=== PATIENT | female | born 1965 | race African-American/Black ===

== ENCOUNTER 2019-02-11 21:31 | Inpatient (IN) | payer OTHER ==
[~2019-02-11] VITALS: Ht 160 cm; Wt 81.6 kg
--- NOTE | 2019-02-11 21:45 | NUR ---
Respiratory note: PT ARRIVED VIA EMS FOR SOB. ABG OBTAINED. DR. CADE AT BEDSIDE. PT PRESENTING RESPIRATORY DISTRESS, PT TO BE INTUBATED BY DR. CADE.
[2019-02-11] MEDS ORDERED: SUCCINYLCHOLINE CHLORIDE 20 MG/ML 10ML VIAL IV ONE ×4 (21:52→22:45)
[2019-02-11] MEDS ORDERED: ETOMIDATE (2MG/ML) 20ML VIAL IV ONE ×3 (21:52→22:45)
[2019-02-11] MEDS: MIDAZOLAM DRIP 50 mg/50mL 50 ML IV SCH (21:59)
[2019-02-11] MEDS ORDERED: MIDAZOLAM DRIP 50 mg/50mL 50 ML IV ONE (21:59)
[2019-02-11 22:20] VITALS: BP 112/81
[2019-02-11] MEDS ORDERED: VANCOMYCIN 1GM/250ML 250 ML IV ONE (22:30)
[2019-02-11] MEDS ORDERED: SODIUM CHLORIDE 0.9% 3,250 ML IV ONE (22:30)
[2019-02-11] MEDS ORDERED: methylPREDNISolone SOD SUCC 125 MG/2 ML VL IV ONE (22:30)
[2019-02-11] MEDS ORDERED: PIPERACILLIN-TAZOB 3.375GM 100 ML IV ONE (22:30)
[2019-02-11] MEDS ORDERED: ACETAMINOPHEN 650 MG RECT SUPP PR ONE ×2 (22:30)
[2019-02-11] MEDS ORDERED: SODIUM CHLORIDE 0.9% 500 ML IV ONE (22:32)
[2019-02-11] MEDS ORDERED: SODIUM CHLORIDE 0.9% 500 ML IV STA (22:32)
[2019-02-11 22:53] VITALS: BP 112/81
--- NOTE | 2019-02-11 23:32 | NUR ---
Respiratory note: POST ABG RESULTS WERE REPORTED TO DR. CADE, INCREASED RR TO 16BPM. ABG TO FOLLOW.
[2019-02-11 23:42] LABS: Basophils # (auto) 0 uL; Basophils % (auto) 0.1 % (0.0-2.0); Eosinophils # (auto) 0 uL; Eosinophils % (auto) 0.1 % (0.0-7.0); Hematocrit 53.9 % (36.0-46.0); Hemoglobin 16.9 g/dL (12.2-16.2); Lymphocytes # (auto) 0.4 uL; Lymphocytes % (auto) 4.1 % (10.0-50.0); Mean Corpuscular Hemoglobin 29.6 pg (28.0-32.0); Mean Corpuscular Hgb Conc. 31.3 g/dL (32.0-36.0); Mean Corpuscular Volume 94.5 fL (80.0-100.0); Monocytes # (auto) 0.7 uL; Monocytes % (auto) 6.8 % (0.0-12.0); Neutrophils # (auto) 9.2 uL; Neutrophils % (auto) 88.9 % (37.0-80.0); Nucleated Red Blood Cells % 0.1 %; Platelet Count (auto) 131 10^3/uL (140-450); Red Blood Cells 5.71 10^6/uL (4.0-5.20); Red Cell Distribution Width 15.1 % (11.8-14.3); White Blood Cell 10.4 10^3/uL (4.4-10.8)
[2019-02-11 23:49] LABS: Urine Bacteria FEW /hpf (None Seen); Urine Blood Negative /uL (Negative); Urine Hyaline Cast MANY /lpf (0 - 2); Urine Mucus FEW (None Seen); Urine Specific Gravity 1.021 (1.001-1.035); Urine WBC 3 /hpf (0 - 5)
[2019-02-11 23:56] VITALS: BP 97/66
[2019-02-12] VITALS (72 sets, daily range): BP systolic 95–143; BP diastolic 60–96
[2019-02-12 00:03] LABS: Alanine Aminotransferase 319 U/L (13-56); Albumin 2.7 g/dL (3.4-5.0); Anion Gap 19 (5-15); Aspartate Aminotransferase 95 U/L (15-37); BUN/Creatinine Ratio 26.2; Blood Urea Nitrogen 75 mg/dL (7-18); Calcium 9.5 mg/dL (8.5-10.1); Carbon Dioxide 18 mmol/L (21-32); Chloride 121 mmol/L (98-107); GFR African American 22 mL/min; GFR Non-African American 18 mL/min; Potassium 4.7 mmol/L (3.5-5.1); Sodium 158 mmol/L (136-145)
[2019-02-12 00:06] LABS: Alkaline Phosphatase 269 U/L (45-117); Bilirubin, Total 1.1 mg/dL (0.2-1.0); Total Protein 6.1 g/dL (6.4-8.2)
[2019-02-12 00:22] LABS: Glucose 797 mg/dL (74-106)
[2019-02-12] MEDS ORDERED: ALBUMIN 5% 250 ML IV ONE (00:30)
[2019-02-12] MEDS ORDERED: fentaNYL Drip 2500mCg/250mlNS 250 ML IV ONE (00:40)
[2019-02-12] MEDS ORDERED: InsuLIN REG 1unit/0.01ml Soln (100units/ml) IV ONE ×2 (01:00→04:00)
[2019-02-12] MEDS ORDERED: fentaNYL Drip 2500mCg/250mlNS 250 ML IV SCH (01:00)
[2019-02-12] MEDS: NOREPINEPHRINE 8 MG/250ML KIT 250 ML IV SCH (01:00)
--- NOTE | 2019-02-12 01:25 | NUR ---
Respiratory note: PT TRANSPORTED TO CT VIA AMBU BAG, PEEP VALVE, AND O2 TANK. UNEVENTFUL. PT PLACED BACK ON VENT WITH PRVIOUS SETTINGS. WILL CONTINUE TO MONITOR.
[2019-02-12 02:17] LABS: Lactic Acid w/Reflex 3.9 mmol/L (0.4-2.0)
--- NOTE | 2019-02-12 03:27 | NUR ---
Respiratory note: ABG RESULTS REPORTED TO DR. CADE, TITRATED FIO2 TO 60%, RN AWARE. WILL CONTINUE TO MONITOR.
[2019-02-12] MEDS ORDERED: ACETAMINOPHEN 500 MG TAB PO PRN (05:45)
[2019-02-12] MEDS ORDERED: VANCOMYCIN PER PHARMACY 0 MG IV SCH ×2 (05:45→16:00)
[2019-02-12] MEDS ORDERED: SODIUM CHLORIDE 0.9% 1,000 ML IV ONE ×2 (05:45→12:00)
[2019-02-12] MEDS ORDERED: ONDANSETRON HCL 4 MG/2 ML VIAL IV PRN (05:45)
[2019-02-12] MEDS: IPRATROPIUM BROM 0.5 MG/2.5ML INH SOL NEB SCH ×5 (06:00→21:51)
[2019-02-12] MEDS: ALBUTEROL SULF 2.5 MG/0.5ML(0.5%) NEB SOLN NEB SCH ×5 (06:00→21:51)
[2019-02-12] MEDS ORDERED: methylPREDNISolone SOD SUCC 40 MG/ML VL IV SCH (06:00)
--- NOTE | 2019-02-12 06:11 | NUR ---
Respiratory note: RECEIVED PATIENT V4 V200 VENT ORALLY INTUBATED WITH 7.5 ETT SECURED VIA MILKA AT THE 22CM MARKING AT THE LIP, AND MECHANICALLY VENTILATED WITH THE ABOVE CHARTED SETTINGS. SPO2 96%, LUNG SOUNDS DIM T/O, SMALL AMOUNT OF THICK LIGHT LYLES SECRETIONS WHEN SUCTIONED. SKIN IS WARM/DRY TO THE TOUCH AND IS INTACT NEAR MILKA SITE. THERE IS PITTING EDEMA IN THE UPPER EXTREMITIES BILATERALLY, WELL IN THE LOWER EXTREMITIES. AM CXR SHOWS ETT IN SATISFACTORY POSITION SITTING APPROX 3.3CM ABOVE THE QUINN, NO INDICATION TO ADJUST TUBE. PATIENT IS UNRESPONSIVE TO BOTH VERBAL/TACTILE STIMULI AND IS SEDATED ON A VERSED AND FENTANYL DRIPS. SHE IS RESTING COMFORTABLY AND TOLERATING VENT WELL, NO CHANGES MADE. VENT PLUGGED INTO RED OUTLET AND ALL ALARMS ARE SET AND AUDIBLE. WILL CONTINUE TO ASSESS PATIENT WELL VENTILATOR FUNCTION.
[2019-02-12] MEDS ORDERED: InsuLIN R (HUMAN) 100 UNITS in SODIUM CHL 0.9% 99 ML IV SCH (06:22)
[2019-02-12] MEDS ORDERED: DEXTROSE (50%) 50ML SYRG IV PRN ×2 (06:30→12:15)
--- NOTE | 2019-02-12 06:30 | NUR ---
Respiratory note: 0600 MED-NEB TX HELD FOR TACHYCARDIA. NO RESPIRATORY DISTRESS NOTED.
--- NOTE | 2019-02-12 07:00 | NUR ---
PT RECEIVED FROM ER AT THIS TIME. PT EXTREMELY LABILE WITH ANY ACTIVITY (PT O2 SATS <88%, SBP <60 WHEN TRANSFERRED FROM GURNEY TO BED). ALL GTTS ADJUSTED ACCORDINGLY. VSS ALTHOUGH VERY CRITICAL AT THIS TIME. WILL CONTINUE TO MONITOR FOR CHANGES. SEE FLOWSHEET FOR MORE DETAILS.
--- NOTE | 2019-02-12 07:03 | NUR ---
Respiratory note: PATIENT TRANSFERRED TO ICU BED 9 WITH RADHA ZUÑIGA, AND DR. HESS. SHE WAS TAKEN OFF VENTILATOR AND BAGGED VIA AMBU BAG WITH PEEP VALVE SET AT [id number] ON 100% FIO2 FOR DURATION OF TRIP. SHE WAS PLACED BACK ON V4 VENTILATOR, WITH ALL PREVIOUSLY ORDERED SETTINGS, ONCE IN ICU BED. PATIENT TOLERATED TRANSPORT WELL, MOVE COMPLETED WITHOUT INCIDENT.
--- NOTE | 2019-02-12 07:10 | NUR ---
Respiratory note: FIO2 INCREASED TO 100% AT THIS TIME DO TO LOW SPO2 ON 88%. SPO2 WOULD NOT INCREASE WHEN INCREASING FIO2 TO 70%, OR 80%. RN NOARIE AT BEDSIDE AND AWARE OF CHANGE.
[2019-02-12] MEDS: ACCU-CHEK COMFORT CURVE STRIP VI SCH ×11 (07:30→20:28)
--- NOTE | 2019-02-12 08:40 | NUR ---
Respiratory note: FIO2 DECREASED TO 60% POST ABG DRAW AND PO2 RESULTS OF 146. RN MELVIN MADE AWARE OF CHANGE.
[2019-02-12] MEDS: PIPERACILLIN-TAZOB 2.25GM 50 ML IV SCH ×2 (09:00→11:36)
--- NOTE | 2019-02-12 09:00 | NUR ---
FAMILY AT BEDSIDE (PT'S SISTER AND ). UPDATED FAMILY WITH POC AND PT OVERALL STATUS. NO FURTHER QUESTIONS AT THIS TIME, VSS.
[2019-02-12] MEDS ORDERED: PANTOPRAZOLE 40 MG TAB PO SCH (10:00)
--- NOTE | 2019-02-12 10:15 | NUR ---
Respiratory note: FIO2 DECREASED TO 50% AT THIS TIME. RN MELVIN MADE AWARE OF CHANGE.
--- NOTE | 2019-02-12 10:15 | NUR ---
Respiratory note: 1000 MED-NEB TX HELD FOR TACHYCARDIA. NO RESPIRATORY DISTRESS NOTED.
--- NOTE | 2019-02-12 10:55 | NUR ---
WOUND CARE NOTE: Wound care into see patient for skin integrity monitoring due to intubation status and low Alistair score of 13 , putting patient to high risk for skin breakdown. Patient is 53 years old female with admitting diagnosis of Acute Resp Failure. Patient has history of terminal brain Cancer, htn, DM. Patient is resting in ICU premium bed in Rm 109. She's intubated, sedated and mechanically ventilated. Patient appears to be in no pain using [place] Li Faces Pain Scale. Skin assessment done with the assistance of another nurse, RADHA Titus. No open wound noted other than intact scar tissue to left medial ankle, no pressure injury issue noted. Repositioned patient for comfort facing his Rt side, redistributed pressure points with pillows. Patient tolerated well. Patient's family at bedside. RECOMMENDATION: BID/PRN cleaning and application of Barrier cream to sacrum and perineum as preventative, frequent turning and repositioning schedule as condition permits, redistribute pressure points with pillows, elevate heels on pillows, continue monitoring by wound care while patient is mechanically ventilated. Addendum: 02/12/19 at 1215 by Domenica Carter RN Amended: Links added.
[2019-02-12] MEDS ORDERED: INSUINJ2 SC (11:20)
[2019-02-12] MEDS ORDERED: DEX4T PO (11:20)
[2019-02-12] MEDS ORDERED: MEM5T GT (11:20)
[2019-02-12] MEDS ORDERED: INSREG3 IV (11:20)
[2019-02-12] MEDS ORDERED: MORP15TA PO (11:20)
[2019-02-12 11:43] LABS: Basophils # (auto) 0 uL; Basophils % (auto) 0.9 % (0.0-2.0); Eosinophils # (auto) 0 uL; Eosinophils % (auto) 0.2 % (0.0-7.0); Hematocrit 47.3 % (36.0-46.0); Hemoglobin 15.2 g/dL (12.2-16.2); Lymphocytes # (auto) 0 uL; Lymphocytes % (auto) 1.2 % (10.0-50.0); Mean Corpuscular Hemoglobin 29.4 pg (28.0-32.0); Mean Corpuscular Hgb Conc. 32.2 g/dL (32.0-36.0); Mean Corpuscular Volume 91.1 fL (80.0-100.0); Monocytes # (auto) 0.1 uL; Monocytes % (auto) 3.1 % (0.0-12.0); Neutrophils # (auto) 3.4 uL; Neutrophils % (auto) 94.6 % (37.0-80.0); Nucleated Red Blood Cells % 0.1 %; Platelet Count (auto) 92 10^3/uL (140-450); Red Blood Cells 5.19 10^6/uL (4.0-5.20); Red Cell Distribution Width 14.9 % (11.8-14.3); White Blood Cell 3.6 10^3/uL (4.4-10.8)
[2019-02-12] MEDS: PHENYLEPHRINE INJ 20 MG in SODIUM CHL 0.9% 250 ML IV SCH ×2 (11:50→20:10)
--- NOTE | 2019-02-12 11:50 | NUR ---
MD SOLO AT BEDSIDE. UPDATED MD WITH PT OVERALL STATUS INCLUDING ABNORMAL LAB VALUES AND SENSITIVITY TO ACTIVITY. NEW ORDERS GIVEN AND IMPLEMENTED. MD UPDATED FAMILY WITH POC AND ANSWERED ALL PENDING FAMILY QUESTIONS. FAMILY ALL VERBALIZED UNDERSTANDING WITH POC WITH NO FURTHER QUESTIONS AT THIS TIME, VSS.
[2019-02-12 12:00] LABS: Calcium 9.4 mg/dL (8.5-10.1)
[2019-02-12] MEDS: ALBUMIN 25% 100 ML IV SCH ×2 (12:00→13:00)
[2019-02-12 12:02] LABS: BUN/Creatinine Ratio 21.8
[2019-02-12 12:04] LABS: Lactic Acid w/Reflex 6.1 mmol/L (0.4-2.0)
[2019-02-12] MEDS ORDERED: INSULIN 70/30 1unit/0.01ml Susp (100units/ml) SC ONE (12:10)
[2019-02-12] MEDS ORDERED: INSULIN NPH Isophane (HUMAN) 1unit/0.01ml Susp(100units/ml) SC ONE (12:15)
[2019-02-12] MEDS ORDERED: SODIUM CHLORIDE 0.9% 1,000 ML IV SCH (12:22)
[2019-02-12] MEDS: ESOMEPRAZOLE 40 MG/5ml VIAL INJ IV SCH (12:56)
[2019-02-12] MEDS: FREE WATER GT SCH ×3 (13:41→22:31)
--- NOTE | 2019-02-12 14:00 | NUR ---
Respiratory note: 1400 MED-NEB TX HELD FOR TACHYCARDIA. NO RESPIRATORY DISTRESS NOTED.
[2019-02-12] MEDS: InsuLIN REG 1unit/0.01ml Soln (100units/ml) SC SCH ×2 (15:37→20:29)
[2019-02-12] MEDS: MEROPENEM 1GM IVPB 100 ML IV SCH (17:22)
--- NOTE | 2019-02-12 17:54 | NUR ---
BLOOD GLUCOSE AT THIS TIME (PRIOR TO ADMINISTRATION OF NPH INSULIN) IS 430. NPH GIVEN DIRECTED. VSS.
[2019-02-12] MEDS: INSULIN NPH Isophane (HUMAN) 1unit/0.01ml Susp(100units/ml) SC SCH (17:55)
--- NOTE | 2019-02-12 19:15 | NUR ---
Opening shift note Assumed care, on vent and sedation with fentanyl @ 50mcg/hr and versed @ 5mg/hr, left subclavian central line patent and intact, OGT still with greenish output connected to low intermittent suction, edward catheter draining by gravity to a light janna urine with sediments. Bed in lowest position with side rails up, bed alarm on. Will continue care.
[2019-02-12] MEDS: DexAMETHasone SOD PHOS 4 MG/1ML SDV INJ IV SCH (22:31)
[2019-02-12] MEDS: MIDAZOLAM DRIP 50 mg/50mL 50 ML IV SCH (22:32)
[2019-02-12] MEDS ORDERED: VANCOMYCIN 1GM/250ML 250 ML IV SCH ×2 (23:00)
--- NOTE | 2019-02-12 23:30 | NUR ---
ELIMINATION LARGE AMOUNT OF LOOSE, BROWN STOOLS NOTED, COMPLETE BED BATH DONE, LINENS AND GOWN CHANGED, OPTIFOAM PLACED TO SACRUM FOR PREVENTION OF PRESSURE SORES. REPOSITIONED FOR COMFORT.
[2019-02-13] VITALS (84 sets, daily range): BP systolic 102–152; BP diastolic 57–92
[2019-02-13] MEDS: InsuLIN REG 1unit/0.01ml Soln (100units/ml) SC SCH ×6 (00:43→20:07)
[2019-02-13] MEDS: NOREPINEPHRINE 8 MG/250ML KIT 250 ML IV SCH (01:00)
[2019-02-13] MEDS: ALBUTEROL SULF 2.5 MG/0.5ML(0.5%) NEB SOLN NEB SCH ×6 (01:36→17:56)
[2019-02-13] MEDS: IPRATROPIUM BROM 0.5 MG/2.5ML INH SOL NEB SCH ×6 (01:36→17:56)
[2019-02-13] MEDS: FREE WATER GT SCH ×3 (02:00→09:59)
--- NOTE | 2019-02-13 03:41 | NUR ---
Blood draw done.
[2019-02-13] MEDS: ACCU-CHEK COMFORT CURVE STRIP VI SCH ×6 (04:00→20:06)
[2019-02-13 04:09] LABS: Basophils # (auto) 0 uL; Basophils % (auto) 0.1 % (0.0-2.0); Eosinophils # (auto) 0 uL; Eosinophils % (auto) 0.1 % (0.0-7.0); Hematocrit 36.9 % (36.0-46.0); Hemoglobin 12.3 g/dL (12.2-16.2); Lymphocytes # (auto) 0.2 uL; Lymphocytes % (auto) 2.9 % (10.0-50.0); Mean Corpuscular Hemoglobin 30.1 pg (28.0-32.0); Mean Corpuscular Hgb Conc. 33.3 g/dL (32.0-36.0); Mean Corpuscular Volume 90.5 fL (80.0-100.0); Monocytes # (auto) 0.2 uL; Monocytes % (auto) 2.4 % (0.0-12.0); Neutrophils # (auto) 6.9 uL; Neutrophils % (auto) 94.5 % (37.0-80.0); Nucleated Red Blood Cells % 0.1 %; Platelet Count (auto) 53 10^3/uL (140-450); Red Blood Cells 4.08 10^6/uL (4.0-5.20); Red Cell Distribution Width 14.7 % (11.8-14.3); White Blood Cell 7.4 10^3/uL (4.4-10.8)
[2019-02-13 04:23] LABS: Potassium 3.5 mmol/L (3.5-5.1)
[2019-02-13 04:30] LABS: Albumin 3.2 g/dL (3.4-5.0); BUN/Creatinine Ratio 26.7; Bilirubin, Total 0.8 mg/dL (0.2-1.0); Total Protein 5.8 g/dL (6.4-8.2)
[2019-02-13] MEDS: PHENYLEPHRINE INJ 20 MG in SODIUM CHL 0.9% 250 ML IV SCH ×2 (04:30→12:50)
[2019-02-13] MEDS: MEROPENEM 1GM IVPB 100 ML IV SCH ×2 (05:39→17:13)
[2019-02-13] MEDS: INSULIN NPH Isophane (HUMAN) 1unit/0.01ml Susp(100units/ml) SC SCH ×2 (07:18→18:07)
--- NOTE | 2019-02-13 07:20 | NUR ---
RESTING ON BED STILL ON VENT, FENTANYL @ 30 AND VERSED @ 4. REPORT GIVEN TO MAGGIE GARCIA.
[2019-02-13] MEDS: DexAMETHasone SOD PHOS 4 MG/1ML SDV INJ IV SCH (09:59)
[2019-02-13] MEDS ORDERED: D5W 5% 1,000 ML IV SCH (10:30)
--- NOTE | 2019-02-13 12:04 | NUR ---
I faxed transfer order to [facility] [phone].
[2019-02-13] MEDS: ESOMEPRAZOLE 40 MG/5ml VIAL INJ IV SCH (12:50)
--- NOTE | 2019-02-13 14:31 | NUR ---
I spoke with [employer] Keila [phone], she is aware of the transfer order and will call me back after she speaks with her MD.
[2019-02-13 15:10] LABS: BUN/Creatinine Ratio 31.8; Calcium 10.2 mg/dL (8.5-10.1); Potassium 3.5 mmol/L (3.5-5.1)
--- NOTE | 2019-02-13 15:36 | NUR ---
DR. SOLO CALLED AND INFORMED OF THE SODIUM BEING 162, NEW ORDER TO INCREASE FREE WATER TO 200ML Q 4 HOURS. ORDERS RECIEVED AND CARRIED OUT SEE NEW ORDERS.
[2019-02-13] MEDS ORDERED: FREE WATER GT SCH (18:00)
[2019-02-13] MEDS ORDERED: ACETYLCYSTEINE 10 %(100MG/ML) SOL 4ML NEB SCH ×2 (18:00→22:00)
[2019-02-13 18:22] LABS: BUN/Creatinine Ratio 32.2; Calcium 10.4 mg/dL (8.5-10.1); Potassium 3.3 mmol/L (3.5-5.1)
--- NOTE | 2019-02-13 20:17 | NUR ---
RECEIVED A CALL FROM [facility], [facility] IN [place], LATEST VS GIVEN AND SHE SAID TRANSPORT WILL BE HERE IN 45-60 MIN.
--- NOTE | 2019-02-13 20:50 | NUR ---
[facility] TRANSPORT TEAM AT BEDSIDE, REPORT GIVEN TO GINA COELLO RN INCLUDING PAPER WORKS AND CD.
--- NOTE | 2019-02-13 20:58 | NUR ---
REPORT CALLED TO HAVEN BARNEY RN IN [facility].
--- NOTE | 2019-02-13 21:15 | NUR ---
Pt being trans to another [facility] Order obtained for transfer of QAMAR MYERS to [facility]. Report called/given to Lisa Osuna RN. Report given to EMS transport team. Medication reconciliation form completed and copy given to patient. Transported via [facility] along with copied chart and imaging films/disk and all personal belongings. No distress noted on time of departure. Family notified earlier prior to transport being at the bedside of destination and room number, verbalized understanding. NOTE: Pt still on sedation with versed @ 4mg/hr, fentanyl @ 30 mcg/hr and vent on AC mode with PIV's to the right AC, left shoulder, left wrist, patent OGT and edward catheter connected to urobag.
== END 2019-02-13 21:15 | disposition short-term general hospital (02) | DRG 871 ==
LOC: EDBD 21:31 → ER 21:36 → OVERFLOW 02-12 05:45 → ICU WEST 02-12 06:57
PROVIDERS: ADMIT Nurse Practitioner Family; ATTEND Internal Medicine
PROC: 5A1945Z Respiratory Ventilation, 24-96 Consecutive Hours (ICD-10-PCS; principal; 2019-02-12)
DX: A41.9 Sepsis, unspecified organism (principal); E11.10 Type 2 diabetes mellitus with ketoacidosis without coma; G93.41 Metabolic encephalopathy; J18.0 Bronchopneumonia, unspecified organism; J96.01 Acute respiratory failure with hypoxia; J96.02 Acute respiratory failure with hypercapnia; R65.21 Severe sepsis with septic shock; N17.0 Acute kidney failure with tubular necrosis; E43 Unspecified severe protein-calorie malnutrition; E87.0 Hyperosmolality and hypernatremia; J21.9 Acute bronchiolitis, unspecified; E86.0 Dehydration; E87.5 Hyperkalemia; F17.200 Nicotine dependence, unspecified, uncomplicated; Z68.31 Body mass index [BMI] 31.0-31.9, adult; G90.2 Horner's syndrome; H05.20 Unspecified exophthalmos; H57.02 Anisocoria; I10 Essential (primary) hypertension; D69.59 Other secondary thrombocytopenia; I25.10 Atherosclerotic heart disease of native coronary artery without angina pectoris; Z82.49 Family history of ischemic heart disease and other diseases of the circulatory system; Z85.118 Personal history of other malignant neoplasm of bronchus and lung; Z85.841 Personal history of malignant neoplasm of brain; Z92.21 Personal history of antineoplastic chemotherapy; Z92.3 Personal history of irradiation; Z79.899 Other long term (current) drug therapy; Z79.4 Long term (current) use of insulin
CPT/HCPCS: 31500; 36415; 36600; 51702; 71045; 76775; 80048; 80053; 80202; 81001; 82010; 82805; 82962; 83036; 83605; 85025; 87040; 87070; 87077; 87081; 87086; 87186; 87205; 93005; 94003; 94640; 94761; 96365; 96366; 96375; 96376; G0378; J0330; J1100; J1815; J2185; J2250; J2543; P9047